=== PATIENT | female | born 2005 | race Hispanic/Latino ===

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

== ENCOUNTER 2024-08-05 22:07 | Emergency (ER) | payer SELFPAY ==
[~2024-08-05] VITALS: Ht 160 cm; Wt 76.2 kg
[~2024-08-05 22:07] MED LIST: DIPH50 PO; EPIN0.3P2 IM; PRED20TA3 PO
[2024-08-05 22:10] VITALS: BP 120/78; PULSE 63; RESP 18; TEMP 99.3
[2024-08-05] MEDS: OCTYL 2-CYANOACRYLATE 1 EACH TP SCH (22:30)
--- NOTE | 2024-08-05 22:36 | ERN ---
General Chief Complaint: Laceration/Avulsion Stated Complaint: C/O LACERATION TO RIGHT MIDDLE FINGER Time Seen by MD: 22:11 Source: patient History of Present Illness Initial Comments 18-year-old female who sliced the dorsal surface of her middle phalanx of her right middle finger while doing the dishes. She comes in because it kept bleeding. Patient says she has no idea when her last tetanus shot was. Allergies: Coded Allergies: No Known Allergies (Unverified Allergy, Unknown, 08/05/24) Home Meds Active Scripts Epinephrine (Epipen) 0.3 Mg/0.3 Ml Auto.injct, 0.3 MG IM ONCE PRN for RASH, #1 CARTRIDGE Prov:DARINEL RAMIREZ MD 06/06/22 Prednisone (Prednisone) 20 Mg Tablet, 1 TAB PO AD for 6 Days, #14 TAB 0 Refills TAKE 3 TAB BY MOUTH daily X3 DAYS, THEN TAKE 2 TAB BY MOUTH daily X2 DAYS, THEN TAKE 1 TAB BY MOUTH ONCE A DAY X1 DAY. Prov:DARINEL RAMIREZ MD 06/06/22 Diphenhydramine HCl (Benadryl) 50 Mg Cap, 50 MG PO QID PRN for itching for 10 Days, #30 CAP 0 Refills Prov:DARINEL RAMIREZ MD 06/06/22 Past Medical History Past Medical History: Anemia Past Surgical History: Other Surgical History Other: RIGHT HAND AND LEFT BREAST CYST REMOVAL Female( History) LMP: Aug 10, 2024 ROS Dictation Review of systems is otherwise negative. Physical Exam Extremities Comment Patient has a superficial laceration on the dorsal surface of the middle phalanx of her middle finger on her right hand. She is able to fully extend the distal phalanx as well as the middle and proximal phalanx of her finger suggesting no tendon injury. The skin edges of the laceration are well approximated. There was no hematoma. There was no bleeding. [facility] I will treat the patient's incision with Dermabond I will give her a tetanus vaccination. The laceration is at low risk of infection. Patient has refused a tetanus shot but she is pretty sure she had one a year ago. ED Course Orders Procedure Category Date Status Time Dermabond (Dermabond) PHA 08/05/24 In Process 22:30 Tetanus,Diphtheria PHA 08/05/24 In Process Tox [Adult] (Diphther 23:00 Current Medications Medications (Trade) Dose Ordered Sig/Luis Daniel Route PRN Reason Start Time Stop Time Status Last Admin Dose Admin Octyl Cyanoacrylate (Dermabond) 1 each ONCE TP 08/05/24 22:30 09/04/24 22:29 Tetanus/ Diphtheria Toxoids Adsorbed (DiphthERIA-teTANUS TOXOID [ADULT]/ DECAVAC) 0.5 ml ONCE ONCE IM 08/05/24 23:00 08/05/24 23:01 Vital Signs Date Time Temp Pulse Resp B/P (MAP) Pulse Ox O2 Delivery O2 Flow Rate FiO2 08/05/24 22:10 99.3 63 18 120/78 98 Room Air DX & DISP Disposition: Discharge Departure Impression: Primary Impression: Finger laceration Condition: Stable Additional Instructions: It is okay to wash the finger but do not soak it in water. Do not take any soaking baths. Showers are okay. Signs and symptoms of infection are redness swelling increased pain. If you have any of these symptoms please come to an emergency room so that antibiotics can be started. If you do experience some mild spasms in your jaw or chest neck and back please come to the emergency room and they may be signs of tetanus infection the risk of infection with tetanus is low given the mechanism of your incision but be cognizant of the early signs of a tetanus infection and come to a hospital immediately. Referrals: FÁTIMA BARAJAS (PCP) JEFF BENÍTEZ MD Aug 05, 2024 22:36
[2024-08-05] MEDS: teTANUS/diphthERIA TOXOID [ADULT] 0.5 ML VIAL IM ONE (22:43)
== END 2024-08-05 23:07 | disposition home or self-care (01) ==
LOC: EDH 22:07
DX: S61.212A Laceration without foreign body of right middle finger without damage to nail, initial encounter (principal); Z79.899 Other long term (current) drug therapy; X58.XXXA Exposure to other specified factors, initial encounter; Y93.89 Activity, other specified; Y92.89 Other specified places as the place of occurrence of the external cause; Y99.8 Other external cause status
CPT/HCPCS: 90714; 99281; 99282